=== PATIENT | female | born 1960 | race Caucasian/White ===

== ENCOUNTER 2021-11-18 08:35 | Day surgery (SDC) | payer BC ==
[~2021-11-18] VITALS: Ht 175.3 cm; Wt 67.6 kg
[~2021-11-18 08:35] MED LIST: ARIP5TAB60 PO; ATI0.5T PO; DULO60CA65 PO; IBUP-2697 PO; LIDO700A47 TP; TEMA15CA PO
[2021-11-18] MEDS ORDERED: LIDOcaine 1%/PF 5ML 10 MG/ML VIAL SQ ONE (08:55)
[2021-11-18] MEDS ORDERED: albumin 25% 100mL bottle x 1 IV PRN (09:10)
[2021-11-18 09:11] VITALS: BP 152/86
[2021-11-18] MEDS ORDERED: CYAN-50 PO (09:16)
[2021-11-18] MEDS ORDERED: GABA600T13 PO (09:17)
[2021-11-18] MEDS ORDERED: ARIP5TAB60 PO (09:21)
[2021-11-18] MEDS ORDERED: DULO-31 PO (09:21)
[2021-11-18 10:01] VITALS: BP 152/86
[2021-11-18 10:16] VITALS: BP 146/88
[2021-11-18 10:30] VITALS: BP 148/90
[2021-11-18 11:18] LABS: GLUCOSE,BODY FLUID 60 MG/DL; LDH,BODY FLUID 208 U/L; TOTAL PROTEIN,BODY FLUID 4.5 G/DL
[2021-11-18 11:26] LABS: BF RBC COUNT 51000 /CU MM; BF WBC COUNT 2300 /CU MM (0-1000); BFAPPEAR BLOODY; BFCOLOR RED; BFVOLUME 60 ML; LYMPHOCYTES,BODY FLUID 69 %; NEUTROPHILS,BODY FLUID 31 %
== END 2021-11-18 10:47 | disposition home or self-care (01) ==
LOC: SSTAY O 08:35
PROVIDERS: ATTEND Radiology Diagnostic Radiology
DX: J90 Pleural effusion, not elsewhere classified (principal); D64.9 Anemia, unspecified; G62.9 Polyneuropathy, unspecified; Z98.84 Bariatric surgery status; Z98.890 Other specified postprocedural states; Z88.2 Allergy status to sulfonamides; Z88.1 Allergy status to other antibiotic agents; Z79.899 Other long term (current) drug therapy; Z81.8 Family history of other mental and behavioral disorders; Z83.3 Family history of diabetes mellitus
CPT/HCPCS: 32555; 36415; 71045; 82945; 83615; 84157; 87070; 89051; J3490